=== PATIENT | female | born 1980 | race Caucasian/White ===

== ENCOUNTER 2017-07-09 16:53 | Emergency (ER) | payer MEDICAID ==
[2017-07-09 16:58] VITALS: O2SAT 96
--- NOTE | 2017-07-09 17:31 | EDPHY ---
H & P Stated Complaint: Cold-like symptoms for 3 days. Painful rectum. HPI/ROS: Chief complaint: Cold symptoms History of present illness: This is a 37-year-old female who presents to the emergency department for cold symptoms. Patient has been sick for the last week. She primarily reports runny nose, nasal congestion, sore throat and generalized fatigue. Symptoms have been persistent. She denies fever chills, she denies body aches, she denies cough, chest congestion or shortness of breath , she denies rash. In addition, patient reports she has developed some anal pain over the last 2 days. Only when she is having a bowel movement. She denies any precipitating factors. She denies any alleviating factors. She denies other associated signs or symptoms including no changes in her stool, no blood noted in the stool , no mucus in the stool. No recent trauma to the area. In addition, she is asking me to evaluate her right hip. She states she fell down a flight of stairs 2 years ago while living in [place]. Since then she has had hip pain. It is persistent. She treats with ibuprofen and gabapentin but this is not currently controlling the pain. She denies new trauma. No report of abnormal coolness or paresthesias in the leg. Review of systems: A 10 point review of systems was obtained and other than described above was negative - Personal History LMP (Females 10-55): Unknown Current Tetanus Diphtheria and Acellular Pertussis (TDAP): Yes - Medical/Surgical History Hx Asthma: Yes Hx Chronic Respiratory Disease: No Hx Diabetes: No Hx Cardiac Disease: No Hx Renal Disease: No Hx Cirrhosis: No Hx Alcoholism: No Hx HIV/AIDS: No Hx Splenectomy or Spleen Trauma: No Other PMH: asthma. arthritis. - Social History Smoking Status: Current some day smoker - Physical Exam Exam: General Appearance: Alert, non toxic. Eyes: Pupils equal and round no pallor or injection. ENT, Mouth: Mucous membranes moist. Respiratory: There are no retractions, lungs are clear to auscultation. Cardiovascular: Regular rate and rhythm. Gastrointestinal: Abdomen is soft and non tender, no masses, bowel sounds normal. Anal examination: Performed with female credit control officer, Nurse Keenan. Patient has a small skin tear at the 3 o'clock position. It does not affect the anal margin. No other findings noted. Neurological: Alert and oriented x4. Strength and sensation intact and symmetrical. No meningismus. Skin: Warm and dry, no rashes. Musculoskeletal: Neck is supple non tender. Extremities are symmetrical, full range of motion including with the right hip. Psychiatric: Patient is oriented X 3, there is no agitation. Constitutional: Initial Vital Signs Temperature (C) 36.5 C 07/09/17 16:54 Heart Rate 71 07/09/17 16:54 Respiratory Rate 16 07/09/17 16:54 Blood Pressure 109/44 L 07/09/17 16:54 O2 Sat (%) 96 07/09/17 16:54 O2 Delivery Mode Room Air Allergies/Adverse Reactions: Sulfa (Sulfonamide Antibiotics) Allergy (Verified 07/09/17 16:58) Home Medications: Medication Instructions Recorded NK [No Known Home Meds] 07/09/17 Medical Decision Making ED Course/Re-evaluation: Patient seen under the supervision of my secondary supervising physician Dr. Robin Murray. Patient primarily presents to the emergency department for URI like symptoms. She is nontoxic. Strep swab is negative. Likely a viral syndrome, symptomatic care is discussed. Patient also complaining of anal pain. Small skin tear that is not close to the anal margin. No evidence of hemorrhoids. No evidence abscess. Symptomatic care is discussed. The hip pain appears to be chronic. No acute precipitating factors. Strep cultures of the throat and anus are pending. Patient is to follow up with a primary care doctor and referral information is given. Return precautions are given. Patient voiced understanding and agreement with plan. Differential Diagnosis: Included but not limited to pharyngitis, strep pharyngitis, tonsillitis, sinusitis, influenza As well as for the anus a skin tear, rectal tear, rectal infection including strep as well as abscess formation, hemorrhoid As well as for the hip a contusion, sprain or strain arthritis, unlikely fracture dislocation - Data Points Laboratory Results: 07/09/17 07/09/17 Unknown 17:27 Group A Strep Screen NEGATIVE (NEGATIVE) Group A Strep DNA Pending Departure - Departure Disposition: Home, Routine, Self-Care Clinical Impression: Viral syndrome, Right hip pain, Anal pain Condition: Good Instructions: Viral Syndrome (ED), Hip Pain (ED) Additional Instructions: Follow-up with a primary care doctor for continued evaluation and care of your problems Use [id number] cold medications for treatment of your cold symptoms In addition you can use ibuprofen for your hip pain You can use medicated wipes such as preparation H wipes, use stool softeners such as Colace as well as Citrucel or Metamucil If symptoms worsen or new symptoms develop return to the emergency room for recheck Referrals: [facility],. [Clinic] - As per Instructions
[2017-07-09 18:49] VITALS: BP 112/76; PULSE 67; RESP 18; TEMP 98.1
== END 2017-07-09 18:50 | disposition home or self-care (01) ==
DX: B34.9 Viral infection, unspecified (principal); M25.551 Pain in right hip; K62.89 Other specified diseases of anus and rectum; J45.909 Unspecified asthma, uncomplicated; F17.200 Nicotine dependence, unspecified, uncomplicated

== ENCOUNTER 2017-07-27 14:44 | Emergency (ER) | payer MEDICAID ==
[2017-07-27 14:51] VITALS: TEMP 98.6
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
--- NOTE | 2017-07-27 16:16 | ASMTCMCOM ---
CM Note CM Note Notes: Patient presents to ER requesting prescription refills. See ER report for details. Patient states that she has been to [facility] in attempt to establish a provider/prescriber, but "they take too long". I have called [facility] and spoke to James. Patient did complete registration paperwork today but has missed 2 scheduled "comprehensive assessment" appointments (including today at 1130) which are required prior to patient meeting with a prescriber. Patient was rescheduled for her comprehensive assessment tomorrow at 0900. I have informed patient of the importance of following up with this appointment at [facility] tomorrow and encouraged her to arrive at 0830. I reiterated that she will need to establish a prescriber for her medications and that she has delayed this process by not showing up to her appointments. She verbalizes understanding and states that she will follow up with her appointment tomorrow morning Date Signed: 07/27/2017 04:16 PM Electronically Signed By:Oanh Castellanos RN
[2017-07-27 16:24] VITALS: BP 138/70; PULSE 76; RESP 16; O2SAT 95
== END 2017-07-27 16:10 | disposition home or self-care (01) ==
DX: Z76.0 Encounter for issue of repeat prescription (principal); F31.9 Bipolar disorder, unspecified; F20.9 Schizophrenia, unspecified; I10 Essential (primary) hypertension; J45.909 Unspecified asthma, uncomplicated; F17.200 Nicotine dependence, unspecified, uncomplicated

== ENCOUNTER 2018-01-28 22:49 | Emergency (ER) | payer MEDICAID ==
[2018-01-28] MEDS ORDERED: LIDOCAINE 4%/MENTHOL 1% PATCH TD ONE (22:53)
[2018-01-28 22:54] VITALS: BP 110/65
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
[2018-01-28] MEDS ORDERED: CYCLOBENZAPRINE 10 MG TAB PO ONE (23:18)
[2018-01-29] MEDS ORDERED: PATCH REMOVAL 1 EA PATCH TD SCH (21:00)
== END 2018-01-28 23:32 ==
DX: S39.012A Strain of muscle, fascia and tendon of lower back, initial encounter (principal); T74.91XA Unspecified adult maltreatment, confirmed, initial encounter; F17.200 Nicotine dependence, unspecified, uncomplicated; Y04.8XXA Assault by other bodily force, initial encounter; Y92.9 Unspecified place or not applicable; Y93.9 Activity, unspecified; Y99.9 Unspecified external cause status

== ENCOUNTER 2018-02-24 15:29 | Emergency (ER) | payer MEDICAID ==
[2018-02-24 15:36] VITALS: BP 102/52
--- NOTE | 2018-02-24 15:48 | EDPHY ---
H & P Time Seen by Provider: 02/24/18 15:41 HPI/ROS: Chief complaint. Medication refill HPI. 29 female here out of medications. She tells me she just out of [facility] for 1 week and does not want to go back there. She was seen August 01 for similar presentation complaints. Over the past week she has had anxiety and"flip outs" . She has no other complaints other than tired. She went to [facility] today and has appointments lips for visits for evaluation [facility] on March 01 and March 22. She tells me she takes starting doses of Klonopin. Geodon 20 mg daily, Neurontin 600 mg daily. She also has chronic pain and refill of tramadol which has given previously. She denies suicide or homicide ideation ROS 10 systems were reviewed and negative with the exception of the elements mentioned in the history of present illness Past Medical/Surgical History: Past medical history significant for schizophrenia, bipolar illness, chronic pain, asthma, rheumatoid arthritis, hep C, hypertension. Status post bilateral tubal ligation and cholecystectomy Social History: Single, daily smoker, no alcohol Smoking Status: Current some day smoker Physical Exam: General Appearance: Alert pleasant well-developed female no distress vital signs are stable Eyes: Pupils equal and round no pallor or injection. ENT, Mouth: Mucous membranes are moist. Respiratory: There are no retractions, lungs are clear to auscultation. Cardiovascular: Regular rate and rhythm. Gastrointestinal: Abdomen is soft and nontender, no masses, bowel sounds normal. Neurological: Awake and alert, sensory and motor exams grossly normal. Skin: Warm and dry, no rashes. Musculoskeletal: Neck is supple nontender. Extremities symmetrical, full range of motion. Psychiatric: Patient is oriented X 3, there is no agitation. Constitutional: Initial Vital Signs Temperature (C) 36.6 C 02/24/18 15:34 Heart Rate 63 02/24/18 15:34 Respiratory Rate 16 02/24/18 15:34 Blood Pressure 102/52 L 02/24/18 15:34 O2 Sat (%) 96 02/24/18 15:34 O2 Delivery Mode Room Air Allergies/Adverse Reactions: Sulfa (Sulfonamide Antibiotics) Allergy (Verified 02/24/18 15:33) Home Medications: Medication Instructions Recorded Gabapentin [Neurontin] 600 mg PO DAILY #30 tablet 02/24/18 Tramadol HCl 50 mg PO Q4-8PRN PRN #14 tablet 02/24/18 Ziprasidone HCl [Geodon 20MG (*)] 20 mg PO BID #30 cap 02/24/18 clonazePAM [Clonazepam] 0.25 mg PO DAILY #30 tab.rapdis 02/24/18 Medical Decision Making ED Course/Re-evaluation: Patient and I discussed treatment plan and writing prescription. We discussed further prescriptions need to be returned from [facility] or [facility]. She expresses understanding and agreement Differential Diagnosis: Patient with stab list diagnosis of schizophrenia and bipolar illness out of medication. Recently in [facility]. Departure - Departure Disposition: Home, Routine, Self-Care Clinical Impression: Medication refill Condition: Good Instructions: Medicine Refill (ED) Additional Instructions: Take her medication as prescribed. Return for thoughts of harming herself or others. [facility] on March 01 and March 22. Further medication refills from [facility] or [facility] Referrals: NONE *[facility],. [Primary Care Provider] - As per Instructions [facility] [Outside] - As per Instructions [facility] [Outside] - As per Instructions Prescriptions: clonazePAM [Clonazepam] 0.25 mg PO DAILY #30 tab.rapdis Gabapentin [Neurontin] 600 mg PO DAILY #30 tablet Tramadol HCl 50 mg PO Q4-8PRN PRN #14 tablet PRN Reason: Pain, Moderate Ziprasidone HCl [Geodon 20MG (*)] 20 mg PO BID #30 cap
== END 2018-02-24 16:06 | disposition home or self-care (01) ==
DX: Z76.0 Encounter for issue of repeat prescription (principal)

== ENCOUNTER 2018-04-13 18:34 | Emergency (ER) | payer MEDICAID ==
--- NOTE | 2018-04-13 19:14 | EDPHY ---
H & P Time Seen by Provider: 04/13/18 19:08 HPI/ROS: Chief complaint. Nausea vomiting diarrhea, fever HPI. 29-year-old female presents emergency department with 1 week of fever, diarrhea, vomiting. Urinary frequency. Hot and cold flashes. Myalgias. Coughing and some headache. Out of her psych meds. No chest pain or shortness of breath. Abdominal soreness from vomiting. ROS 10 systems were reviewed and negative with the exception of the elements mentioned in the history of present illness Past Medical/Surgical History: Asthma, arthritis, chronic pain, psychiatric issues, hep C Social History: Single, daily smoker, no alcohol Smoking Status: Current some day smoker Physical Exam: General Appearance: Alert well-developed female mild distress vital signs are stable Eyes: Pupils equal and round no pallor or injection. ENT, Mouth: Mucous membranes are moist. Respiratory: There are no retractions, lungs are clear to auscultation. Cardiovascular: Regular rate and rhythm. Gastrointestinal: Abdomen is soft, no masses, bowel sounds normal. Tenderness in abdominal wall from vomiting Neurological: Awake and alert, sensory and motor exams grossly normal. Skin: Warm and dry, no rashes. Musculoskeletal: Neck is supple nontender. Some low back soreness Extremities symmetrical, full range of motion. Psychiatric: Patient is oriented X 3, there is no agitation. Constitutional: Initial Vital Signs Temperature (C) 36.7 C 04/13/18 18:37 Heart Rate 61 04/13/18 18:37 Respiratory Rate 16 04/13/18 18:37 Blood Pressure 100/55 L 04/13/18 18:37 O2 Sat (%) 97 04/13/18 18:37 O2 Delivery Mode Room Air Allergies/Adverse Reactions: Sulfa (Sulfonamide Antibiotics) Allergy (Verified 02/24/18 15:33) Home Medications: Medication Instructions Recorded Gabapentin [Neurontin] 600 mg PO DAILY #30 tablet 02/24/18 Tramadol HCl 50 mg PO Q4-8PRN PRN #14 tablet 02/24/18 Ziprasidone HCl [Geodon 20MG (*)] 20 mg PO BID #30 cap 02/24/18 clonazePAM [Clonazepam] 0.25 mg PO DAILY #30 tab.rapdis 02/24/18 Cephalexin [Keflex (*)] 500 mg PO TID #21 cap 04/13/18 Clonidine 04/13/18 Gabapentin [Neurontin] 600 mg PO DAILY #7 tablet 04/13/18 [place] Carbonate 04/13/18 Tramadol HCl 50 mg PO Q6-8PRN PRN #14 tablet 04/13/18 Ziprasidone HCl [Geodon 20MG (*)] 20 mg PO BID #14 cap 04/13/18 clonazePAM [Clonazepam] 0.25 mg PO DAILY #7 tab.rapdis 04/13/18 Medical Decision Making - Diagnostics Imaging Results: Imaging Impressions Chest X-Ray 04/13/18 19:25 Impression: 1. No acute pulmonary disease. 2. Consider chest two views when the patient's medical condition permits. Chest x-ray interpreted by me as negative for pneumonia Procedures: IV normal saline. Phenergan for nausea Tramadol orally ED Course/Re-evaluation: Patient remained stable. Appears she has mild UTI. She is given her 1st dose of cephalexin in the emergency dip Re-evaluation 9:00 p.m. Patient is stable. Patient and I discussed imaging and lab results. We discussed treatment plan including criteria for return importance of follow-up further evaluation. She expresses understanding and agreement I have given the patient 1 weeks worth of refills of her psychiatric medication Differential Diagnosis: I considered pneumonia, urinary tract infection, viral syndrome - Data Points Laboratory Results: Laboratory Results 04/13/18 19:41 04/13/18 19:41 04/13/18 04/13/18 04/13/18 20:36 19:41 19:41 WBC 8.72 10^3/uL 10^3/uL (3.80-9.50) RBC 4.80 10^6/uL 10^6/uL (4.18-5.33) Hgb 13.7 g/dL g/dL (12.6-16.3) Hct 42.1 % % (38.0-47.0) MCV 87.7 fL fL (81.5-99.8) MCH 28.5 pg pg (27.9-34.1) MCHC 32.5 g/dL g/dL (32.4-36.7) RDW 13.1 % % (11.5-15.2) Plt Count 271 10^3/uL 10^3/uL (150-400) MPV 11.3 fL fL (8.7-11.7) Neut % (Auto) 59.4 % % (39.3-74.2) Lymph % (Auto) 27.5 % % (15.0-45.0) [place] % (Auto) 8.1 % % (4.5-13.0) Eos % (Auto) 4.0 % % (0.6-7.6) Baso % (Auto) 0.5 % % (0.3-1.7) Nucleat RBC Rel Count 0.0 % % (0.0-0.2) Absolute Neuts (auto) 5.18 10^3/uL 10^3/uL (1.70-6.50) Absolute Lymphs (auto) 2.40 10^3/uL 10^3/uL (1.00-3.00) Absolute Monos (auto) 0.71 10^3/uL 10^3/uL (0.30-0.80) Absolute Eos (auto) 0.35 10^3/uL 10^3/uL (0.03-0.40) Absolute Basos (auto) 0.04 10^3/uL 10^3/uL (0.02-0.10) Absolute Nucleated RBC 0.00 10^3/uL 10^3/uL (0-0.01) Immature Gran % 0.5 % % (0.0-1.1) Immature Gran # 0.04 10^3/uL 10^3/uL (0.00-0.10) Sodium 137 mEq/L mEq/L (135-145) Potassium 4.3 mEq/L mEq/L (3.3-5.0) Chloride 103 mEq/L mEq/L (97-110) Carbon Dioxide 26 mEq/l mEq/l (22-31) Anion Gap 8 mEq/L mEq/L (6-14) BUN 16 mg/dL mg/dL (7-23) Creatinine 0.9 mg/dL mg/dL (0.6-1.0) Estimated GFR > 60 Glucose 91 mg/dL mg/dL (70-100) Calcium 9.9 mg/dL mg/dL (8.5-10.4) Urine Color YELLOW Urine Appearance CLEAR Urine pH 6.0 (5.0-7.5) Ur Specific [place] 1.009 (1.002-1.030) Urine Protein NEGATIVE (NEGATIVE) Urine Ketones NEGATIVE (NEGATIVE) Urine Blood NEGATIVE (NEGATIVE) Urine Nitrate POSITIVE H (NEGATIVE) Urine Bilirubin NEGATIVE (NEGATIVE) Urine Urobilinogen NEGATIVE EU EU (0.2-1.0) Ur Leukocyte Esterase TRACE H (NEGATIVE) Urine RBC 1-3 /hpf /hpf (0-3) Urine WBC 5-10 /hpf H /hpf (0-3) Ur Epithelial Cells TRACE /lpf /lpf (NONE-1+) Urine Bacteria 4+ /hpf H /hpf (NONE SEEN) Urine Mucus TRACE /lpf /lpf (NONE-1+) Urine Sperm PRESENT /hpf H /hpf (NONE SEEN) Urine Glucose NEGATIVE (NEGATIVE) Medications Given: Discontinued Medications Sodium Chloride (Ns) 1,000 mls @ 0 mls/hr IV EDNOW ONE; Wide Open PRN Reason: Protocol Stop: 04/13/18 19:26 Last Admin: 04/13/18 19:40 Dose: 1,000 mls Promethazine HCl (Phenergan) 12.5 mg IVP EDNOW ONE Stop: 04/13/18 19:27 Last Admin: 04/13/18 19:41 Dose: 12.5 mg Tramadol HCl (Ultram) 50 mg PO EDNOW ONE Stop: 04/13/18 19:26 Last Admin: 04/13/18 19:50 Dose: 50 mg Departure - Departure Disposition: Home, Routine, Self-Care Clinical Impression: Urinary tract infection Qualifiers: Urinary tract infection type: site unspecified Hematuria presence: without hematuria Qualified Code(s): N39.0 - Urinary tract infection, site not specified Condition: Good Instructions: Urinary Tract Infection in Women (ED) Additional Instructions: Drink plenty of fluids and stay hydrated. Cephalexin as antibiotic for urinary tract infection. Use 1 pill 3 times daily until antibiotics are complete I have written you for 1 weeks worth of psychiatric medication. Please see [facility] in the next several days for refill see do not run out again Return for worsening symptoms Referrals: NONE *PRIMARY CARE P,. [Primary Care Provider] - As per Instructions [facility] [Outside] - As per Instructions Prescriptions: Cephalexin [Keflex (*)] 500 mg PO TID #21 cap clonazePAM [Clonazepam] 0.25 mg PO DAILY #7 tab.rapdis Gabapentin [Neurontin] 600 mg PO DAILY #7 tablet Tramadol HCl 50 mg PO Q6-8PRN PRN #14 tablet PRN Reason: Pain, Moderate Ziprasidone HCl [Geodon 20MG (*)] 20 mg PO BID #14 cap
[2018-04-13] MEDS ORDERED: traMADol 50 MG TAB PO ONE (19:25)
[2018-04-13] MEDS ORDERED: NS 1,000 ML IV ONE (19:25)
[2018-04-13] MEDS ORDERED: PROMETHAZINE HCL 25 MG/ML INJ IVP ONE (19:26)
[2018-04-13 20:05] LABS: PLATELET COUNT 271 10^3/uL (150-400)
[2018-04-13] MEDS ORDERED: CEPHALEXIN 500MG PREPACK#4 BTL TAKEHOME ONE (20:59)
[2018-04-13 21:17] VITALS: BP 103/59
== END 2018-04-13 21:20 | disposition home or self-care (01) ==
DX: N39.0 Urinary tract infection, site not specified (principal); E86.9 Volume depletion, unspecified
CPT/HCPCS: 96374; J2550

== ENCOUNTER 2018-06-11 17:56 | Emergency (ER) | payer MEDICAID ==
--- NOTE | 2018-06-11 19:20 | EDPHY ---
H & P Time Seen by Provider: 06/11/18 18:31 HPI/ROS: HPI Right shoulder injury. 38-year-old female by private vehicle with her friends. This patient reports that she was walking up some stairs about 1 week ago caring some boxes. She reports that she fell and landed awkwardly on her right shoulder. She reports that she has had continued pain to the superior lateral aspect of the right shoulder since this time. She reports that she is unable to take ibuprofen or other NSAIDs because she is on lithium. She reports that she has taken tramadol in the past for pain but does not have any of this medication currently. She denies any loss of sensation or weakness in her right hand. Her friend who is present in the room told me that she has also been complaining of lower back pain. She denies any bowel or bladder incontinence. She describes this pain is chronic in nature and more involving the right sacroiliac joint. She denies any loss of sensation or weakness in her extremities. She denies any radiation of the pain. ROS: Constitutional: No fever, no chills. No weakness. Respiratory: No cough. No shortness of breath. Cardiac: No chest pain, no palpitations. Gastrointestinal: No abdominal pain, no vomiting, no diarrhea. Genitourinary: No hematuria. No dysuria or increased frequency with urination. Musculoskeletal: As above. No neck pain. No other extremity pain. Skin: No rashes. No lacerations or abrasions. Neurological: No headache. No focal weakness or altered sensation. Past medical history: Asthma, arthritis, chronic pain, schizophrenia, bipolar, hepatitis-C. Social history: Here with her friends. No alcohol. Nonsmoker. Physical Exam: General Appearance: Alert, no distress. This patient is responding to questions appropriately and in full sentences. This patient appears well- hydrated and well-nourished. Head: Normocephalic atraumatic. Face: Facial bones are stable on palpation. Eyes: Pupils equal and round and reactive to light, no pallor or injection. No lid erythema or edema. Right upper extremity and shoulder exam. The axillary nerve distribution is intact. The right upper extremity is neurovascularly intact. There is no gross deformity on inspection of the right glenohumeral joint and shoulder in general in comparison to the left side. She does have some tenderness on palpation over the AC joint. No bony deformity or step-off noted over this area. The glenohumeral joint is intact and ranges freely in all planes of motion. Back exam: No midline cervical, thoracic, lumbar, sacral tenderness on palpation. No significant paraspinal tenderness on palpation. No CVA tenderness on palpation. She has a negative same side and cross-side straight leg raise test. She is neurologically intact in all myotomes in dermatomes of the bilateral lower extremities. Gastrointestinal: Abdomen is soft and nontender, no masses, bowel sounds normal. Neurological: Motor sensory function is intact. Cranial nerves are normal. Cerebellar function intact. Skin: Warm and dry, no rashes. No lacerations, abrasions or contusions. Extremities are symmetrical, full range of motion except noted. All joints in the bilateral upper and bilateral lower extremities range without pain or impingement except noted. No tenderness on palpation of the long bones in the bilateral upper and bilateral lower extremities except noted. Psychiatric: No agitation. No depression. Database: EKG: Imaging: Right shoulder x-ray series: Negative for fracture, subluxation, dislocation. Interpreted by me. Procedures: Emergency department course: Triage vital signs reviewed and are unremarkable. This patient's trauma physical exam does not demonstrate any significant findings. I suspect a mild grade 1 AC joint sprain on the right. She also may have a rotator cuff injury. Plan will be to prescribe her a limited course of tramadol. I will have her follow up with Orthopedics for re-evaluation of her right shoulder this coming week. At this time I do not want to put the right shoulder in a sling. I am concerned that she will just keep it immobilized for too long a period of time and it will worsen her condition. She is in agreement with this plan. Follow- up was thoroughly reviewed with her and her friends. Return to emergency department precautions discussed. All of her questions were answered. She was discharged from the emergency department in good condition with her friends. Differential Diagnosis: The differential diagnosis on this patient includes but is not limited to grade 1 AC joint sprain, possible rotator cuff injury. Fracture, subluxation, dislocation of the right glenohumeral joint, proximal humerus fracture, other significant traumatic injury unlikely. This represents a partial list of diagnoses considered. These considerations are based on history, physical exam , past history, reassessment and diagnostic testing. Smoking Status: Light smoker Constitutional: Initial Vital Signs Temperature (C) 36.7 C 06/11/18 18:15 Heart Rate 57 L 06/11/18 18:15 Respiratory Rate 16 06/11/18 18:15 Blood Pressure 100/44 L 06/11/18 18:15 O2 Sat (%) 96 06/11/18 18:15 O2 Delivery Mode Room Air Allergies/Adverse Reactions: Sulfa (Sulfonamide Antibiotics) Allergy (Intermediate, Verified 06/11/18 18:14) Dyspnea Home Medications: Medication Instructions Recorded Gabapentin [Neurontin] 600 mg PO DAILY #30 tablet 02/24/18 Tramadol HCl 50 mg PO Q4-8PRN PRN #14 tablet 02/24/18 Ziprasidone HCl [Geodon 20MG (*)] 20 mg PO BID #30 cap 02/24/18 clonazePAM [Clonazepam] 0.25 mg PO DAILY #30 tab.rapdis 02/24/18 Cephalexin [Keflex (*)] 500 mg PO TID #21 cap 04/13/18 Gabapentin [Neurontin] 600 mg PO DAILY #7 tablet 04/13/18 [place] Carbonate 04/13/18 Tramadol HCl 50 mg PO Q6-8PRN PRN #14 tablet 04/13/18 Ziprasidone HCl [Geodon 20MG (*)] 20 mg PO BID #14 cap 04/13/18 clonazePAM [Clonazepam] 0.25 mg PO DAILY #7 tab.rapdis 04/13/18 traMADol [Ultram 50 mg (*)] 50 mg PO Q4-6PRN PRN #10 tab 06/11/18 Departure - Departure Disposition: Home, Routine, Self-Care Clinical Impression: Sprain of right shoulder Condition: Good Instructions: Shoulder Sprain (ED) Additional Instructions: Read and follow provided instructions. Follow-up with Orthopedics, Dr. Hutchison, or 1 of his partners early this week for re-evaluation of your right shoulder. Call their office on Wednesday morning for appointment time. Take medication as prescribed. Do not drive while on this medication. Return to the emergency department for worsening pain, loss of sensation or weakness in your right arm, discoloration or other serious concerns. Referrals: Moody Hutchison MD [Medical Doctor] - As per Instructions Prescriptions: traMADol [Ultram 50 mg (*)] 50 mg PO Q4-6PRN PRN #10 tab PRN Reason: Pain, Moderate
[2018-06-11 19:40] VITALS: BP 98/56
== END 2018-06-11 19:39 | disposition home or self-care (01) ==
DX: S43.401A Unspecified sprain of right shoulder joint, initial encounter (principal); W19.XXXA Unspecified fall, initial encounter; Y92.9 Unspecified place or not applicable; Y93.9 Activity, unspecified; Y99.9 Unspecified external cause status

== ENCOUNTER 2018-08-17 12:36 | Emergency (ER) | payer MEDICAID ==
--- NOTE | 2018-08-17 13:43 | EDPHY ---
H & P Time Seen by Provider: 08/17/18 13:27 HPI/ROS: CHIEF COMPLAINT: Abdominal pain, "I threw out my meds" HISTORY OF PRESENT ILLNESS: The patient is a 38-year-old female with a history of her schizophrenia, bipolar disorder, chronic pain who presents emergency department with abdominal pain. Patient states she has had numerous episodes of nonbloody diarrhea x 2 mos. She also has had nausea and vomiting. The she thought that maybe her psych medications were causing her symptoms so she threw them all out roughly 1 week ago. Patient has no fevers or chills. REVIEW OF SYSTEMS: 10 systems were reveiwed and are negative with the exception of the elements mentioned in the history of present illness. Past Medical/Surgical History: Includes asthma, arthritis, chronic pain, schizophrenia, bipolar disorder, hepatitis-C Social history: Patient does not smoke Smoking Status: Light smoker Physical Exam: Vitals noted GENERAL: No acute distress, alert. HEENT: Eyes normal to inspection, normal pharynx, no signs of dehydration. NECK: Normal, supple. RESPIRATORY: Clear to auscultation bilaterally, no rales, rhonchi or wheezing. CVS: Regular rate and rhythm, no rubs, murmurs, or gallops. ABDOMEN: Soft, nontender, nondistended, no organomegaly. Benign on exam BACK: Normal to inspection, no CVA tenderness. SKIN: Normal color, no rash, warm, dry. No pallor. EXTREMITIES: No pedal edema, no calf tenderness, no Homans sign or cords, no joint swelling. NEURO/PSYCH: Alert and oriented, normal mood and affect, normal motor sensory exam. Constitutional: Initial Vital Signs Temperature (C) 36.5 C 08/17/18 12:46 Heart Rate 77 08/17/18 12:46 Respiratory Rate 16 08/17/18 12:46 Blood Pressure 103/53 L 08/17/18 12:46 O2 Sat (%) 94 08/17/18 12:46 O2 Delivery Mode Room Air Allergies/Adverse Reactions: Sulfa (Sulfonamide Antibiotics) Allergy (Intermediate, Verified 08/17/18 12:46) Dyspnea Home Medications: Medication Instructions Recorded Gabapentin [Neurontin] 600 mg PO DAILY #30 tablet 02/24/18 Tramadol HCl 50 mg PO Q4-8PRN PRN #14 tablet 10/11/18 Ziprasidone HCl [Geodon 20MG (*)] 20 mg PO BID #30 cap 02/24/18 clonazePAM [Clonazepam] 0.25 mg PO DAILY #30 tab.rapdis 02/24/18 Cephalexin [Keflex (*)] 500 mg PO TID #21 cap 04/13/18 Gabapentin [Neurontin] 600 mg PO DAILY #7 tablet 04/13/18 [place] Carbonate 04/13/18 Tramadol HCl 50 mg PO Q6-8PRN PRN #14 tablet 04/13/18 Ziprasidone HCl [Geodon 20MG (*)] 20 mg PO BID #14 cap 04/13/18 clonazePAM [Clonazepam] 0.25 mg PO DAILY #7 tab.rapdis 04/13/18 traMADol [Ultram 50 mg (*)] 50 mg PO Q4-6PRN PRN #10 tab 06/11/18 Ondansetron Odt [Zofran Odt 4 mg 4 mg PO Q4PRN PRN #7 tab 08/17/18 (*)] Medical Decision Making ED Course/Re-evaluation: In the emergency department I discussed possible etiologies with the patient. I answered all her questions. IV was placed. Patient was given normal saline 5 mL IV for hydration. Laboratory studies were obtained. The patient's CBC and chemistry unremarkable. is negative. LFTs are normal. Lipase is normal. I discussed the results with the patient. I answered all her questions. Patient was given Zofran upon discharge. She is given follow-up with primary care physician. She will return with worsening symptoms. She was given warnings prior to leaving. The patient will follow up with primary care physician and mental health to obtain her baseline medications. Differential Diagnosis: My differential includes but is not limited to hepatitis-C, cirrhosis, cholecystitis, pancreatitis, electrolyte abnormality, sugar abnormality, withdrawal, dehydration - Data Points Laboratory Results: Laboratory Results 08/17/18 13:45 08/17/18 13:45 08/17/18 08/17/18 08/17/18 13:45 13:45 13:45 WBC 6.74 10^3/uL 10^3/uL (3.80-9.50) RBC 4.82 10^6/uL 10^6/uL (4.18-5.33) Hgb 14.0 g/dL g/dL (12.6-16.3) Hct 42.5 % % (38.0-47.0) MCV 88.2 fL fL (81.5-99.8) MCH 29.0 pg pg (27.9-34.1) MCHC 32.9 g/dL g/dL (32.4-36.7) RDW 13.8 % % (11.5-15.2) Plt Count 257 10^3/uL 10^3/uL (150-400) MPV 10.5 fL fL (8.7-11.7) Neut % (Auto) 57.9 % % (39.3-74.2) Lymph % (Auto) 28.9 % % (15.0-45.0) [place] % (Auto) 8.8 % % (4.5-13.0) Eos % (Auto) 3.7 % % (0.6-7.6) Baso % (Auto) 0.4 % % (0.3-1.7) Nucleat RBC Rel Count 0.0 % % (0.0-0.2) Absolute Neuts (auto) 3.90 10^3/uL 10^3/uL (1.70-6.50) Absolute Lymphs (auto) 1.95 10^3/uL 10^3/uL (1.00-3.00) Absolute Monos (auto) 0.59 10^3/uL 10^3/uL (0.30-0.80) Absolute Eos (auto) 0.25 10^3/uL 10^3/uL (0.03-0.40) Absolute Basos (auto) 0.03 10^3/uL 10^3/uL (0.02-0.10) Absolute Nucleated RBC 0.00 10^3/uL 10^3/uL (0-0.01) Immature Gran % 0.3 % % (0.0-1.1) Immature Gran # 0.02 10^3/uL 10^3/uL (0.00-0.10) Sodium 138 mEq/L mEq/L (135-145) Potassium 4.3 mEq/L mEq/L (3.5-5.2) Chloride 105 mEq/L mEq/L (97-110) Carbon Dioxide 22 mEq/l mEq/l (22-31) Anion Gap 11 mEq/L mEq/L (6-14) BUN 13 mg/dL mg/dL (7-23) Creatinine 0.8 mg/dL mg/dL (0.6-1.0) Estimated GFR > 60 Glucose 95 mg/dL mg/dL (70-100) Calcium 9.7 mg/dL mg/dL (8.5-10.4) Total Bilirubin 0.5 mg/dL mg/dL (0.1-1.4) Conjugated Bilirubin 0.3 mg/dL mg/dL (0.0-0.5) Unconjugated Bilirubin 0.2 mg/dL mg/dL (0.0-1.1) AST 23 IU/L IU/L (14-46) ALT 30 IU/L IU/L (9-52) Alkaline Phosphatase 61 IU/L IU/L (38-126) Total Protein 7.3 g/dL g/dL (6.3-8.2) Albumin 4.3 g/dL g/dL (3.5-5.0) Lipase 41 IU/L IU/L (23-300) Beta HCG, Qual NEGATIVE Medications Given: Discontinued Medications Sodium Chloride (Ns) 500 mls @ 0 mls/hr IV EDNOW ONE; Wide Open PRN Reason: Protocol Stop: 08/17/18 13:46 Last Admin: 08/17/18 14:01 Dose: 500 mls Famotidine/Sodium Chloride (Pepcid 20 Mg (Premix)) 50 mls @ 200 mls/hr IV EDNOW ONE Stop: 08/17/18 13:59 Last Admin: 08/17/18 14:00 Dose: 50 mls Departure - Departure Disposition: Home, Routine, Self-Care Clinical Impression: Abdominal pain Qualifiers: Abdominal location: generalized Qualified Code(s): R10.84 - Generalized abdominal pain Condition: Fair Instructions: Acute Nausea and Vomiting (ED), Acute Abdominal Pain (ED) Additional Instructions: Return with increasing pain, persistent vomiting or any other concerns. Use [id number] Imodium to help with diarrhea. Follow the instructions on the box. Referrals: Larissa Gill MD [Medical Doctor] - 5-7 days, call for appt. Franklyn Marie MD [Medical Doctor] - 5-7 days, if not improved Prescriptions: Ondansetron Odt [Zofran Odt 4 mg (*)] 4 mg PO Q4PRN PRN #7 tab PRN Reason: For Nausea & Vomiting
[2018-08-17] MEDS ORDERED: FAMOTIDINE 20 MG/NACL 50 ML IV ONE (13:45)
[2018-08-17] MEDS ORDERED: NS 500 ML IV ONE (13:45)
[2018-08-17 13:53] LABS: PLATELET COUNT 257 10^3/uL (150-400)
[2018-08-17 14:33] VITALS: BP 120/79
== END 2018-08-17 14:33 | disposition home or self-care (01) ==
DX: R10.84 Generalized abdominal pain (principal); E86.9 Volume depletion, unspecified; F31.9 Bipolar disorder, unspecified; F20.9 Schizophrenia, unspecified
CPT/HCPCS: 96374

== ENCOUNTER 2018-09-07 10:24 | Inpatient (IN) | payer MEDICAID ==
--- NOTE | 2018-09-07 10:52 | EDPHY ---
General - History Smoking Status: Light smoker Time Seen by Provider: 09/07/18 10:45 Narrative: CLINICAL IMPRESSION: Medication noncompliance, depression, suicidal ideations ASSESSMENT/PLAN: 38-year-old female presents to the emergency department with noncompliance to psychiatric medications for over a week, chronic abdominal pain, chronic intermittent bloody diarrhea, and feeling suicidal with plans to jump off a bridge. Patient has been noncompliant with outpatient follow-up and re- initiation of medications. She missed a primary care doctor appointment today. She is supposed to be taking lithium, Geodon, and other medications which she has not taken for quite some time. She has conflicting initially reporting to me that she lives with , 3 teenage daughters and her mother but then telling [facility] that she is homeless. U tox positive for cocaine in a patient that tells me she does not abuse illicit drugs. Concerned that this patient would not be compliant with outpatient follow-up in does express suicidal ideation with plan. She was medically cleared, abdomen is generally uncomfortable but without peritoneal signs or suggestion of acute surgical process. Labs reassuring with no significant electrolyte imbalance, anemia, leukocytosis, transaminitis, or metabolic disturbance. Will plan to place patient on M1 hold and admit to inpatient psych. M1 completed by [facility], signed by Dr. Murray. Patient informed of this and is awaiting placement at time of sign-out at 5:[address] Judd. DIFFERENTIAL DX: Differential includes but not limited to, acute/chronic psychosis, severe depression, suicidal or homicidal ideations, grave disability, failure to thrive , medication noncompliance, medication side effect, alcohol intoxication and illicit drug use, metabolic disturbance, electrolyte imbalance. Abdominal pain includes but not limited to urinary tract infection, pyelonephritis, infection, ectopic , salpingitis, TOA, ovarian torsion, ovarian cyst, endometriosis, uterine fibroids, acute appendicitis, acute diverticulitis, small -bowel obstruction, constipation ED PROCEDURES: See lab and/or imaging results below ED COURSE: Seen and assessed by myself at 11:00 a.m.. Alert, cooperative, endorses suicidal ideation x3 weeks with plan to jump off a bridge. Multiple prior psychiatric admissions. Off her meds for at least a month. Chronic abdominal pain not evaluated by PCP or specialist. Came to the ED voluntarily by bus. Will established IV, labs, stool and urine studies, med clearance and will need evaluation. Patient is cooperative and here voluntarily at this time. If escalate or threatens to leave, will place on [facility]. 1:30 p.m.: Discussed with [facility] provider. Patient positive for cocaine. Not up front about her history. Admits to feeling suicidal, unclear if this is due to underlying drug abuse but I do not feel that this patient will be compliant with outpatient follow-up in is telling me that she would like to jump off a bridge. Plan to look for inpatient placement. Currently not on [facility] or M1. M1 completed by [facility], signed by Dr. Murray. Placement pending. Signed out to Dr. Judd at 1700. CHIEF COMPLAINT: Abdominal pain, suicidal ideations x3 weeks, itchiness all over HPI: 38-year-old female with past medical history of asthma, arthritis, chronic pain , schizophrenia and bipolar disease. Patient reports she has been off of her psychiatric medications for at least 1 week. She has been struggling with abdominal pain, cramping and intermittent bloody diarrhea for 3 months. She thought her psychiatric medications were causing this and therefore stops them. Then she realized they were not causing it, reportedly restarted them but states for the last week she has not taken them. It is unclear why she has not taken them but she tells me that she "ran out". She brings with her several bottles of lithium. She states she has an appointment with her [facility] provider on the of next month. She reportedly was going to a new patient appointment at [facility] today, got in an argument with her in the car and "jumped out of the car at low speed". She then got on a bus and came to the emergency department. Patient reports that she has been suicidal for the last 3 weeks with plan to jump off a bridge. She reportedly has had numerous psychiatric admissions in the past and has attempted suicide in the past. She is not feeling homicidal. She believes her stress is stemmed from "3 un-grateful teenage kids, who does not help me and a mom who is trash". She has not ingested any illicit drugs aside from marijuana. She denies regular alcohol abuse. She reports a history of prior cholecystectomy and treated hepatitis-C. No travel outside the [place] Or recent antibiotics. She reports food "go straight through her and she cannot eat". She reports bloody stools and bleeding from her anus. She has not seen a primary care or GI provider for this. No reported family history of colon cancer, ulcerative colitis or Crohn's disease. No unintentional or unexplained weight loss, night sweats, fevers or chills. She does report that she is very itchy. She has not taken anything for her symptoms. PAST MEDICAL HISTORY: Chronic pain, arthritis, asthma, schizophrenia, bipolar See nurse/triage notes for additional history if applicable Pertinent Past Surgical History: Cholecystectomy, tubal ligation Family History: No reported first-degree relative with Crohn's, ulcerative colitis or colon cancer Social History: Daily smoker, lives with , 3 children and her mother. REVIEW OF SYSTEMS: All other systems negative Constitutional: No fever, no chills, positive for appetite change. Cardiovascular: No chest pain, no palpitations. Respiratory: No cough, no shortness of breath. Gastrointestinal: Positive for 3 months of abdominal pain, no vomiting, positive for diarrhea with intermittent blood. Genitourinary: No hematuria, dysuria, flank pain, pelvic pain Musculoskeletal: Positive for chronic back pain, joint swelling, joint pain, myalgias. Skin: No rashes, color change. Positive for itching Neurological: No headache, dizziness, weakness. PHYSICAL EXAM: General Appearance: Alert, oriented, appropriate, cooperative, anxious appearing, well hydrated, non-toxic appearing, VSS, no hypoxia. Respiratory: There are no retractions, lungs are clear to auscultation. Cardiac: Regular rate and rhythm, no murmurs or gallops. Gastrointestinal: Abdomen is soft, generalized tenderness throughout, bowel sounds normal, no masses/hernia, no rigidity, guarding or focal peritoneal findings. Patient refused rectal exam Neurological: [ Alert and oriented x 3 Skin: Warm, dry, no rashes, no nodules on palpation. No obvious jaundice or scleral icterus. No urticaria or rash Musculoskeletal: Extremities are symmetrical, full range of motion, chronic paravertebral low back pain unchanged from baseline according to patient. deformity, swelling, or erythema. Psychiatric: Patient is oriented X 3, there is no agitation. Admits to feeling suicidal with thoughts of jumping off a bridge. Denies homicidal ideations, anxious, tearful MEDICAL DECISION MAKING: Patient was seen independently. Secondary supervising physician at time of evaluation was Dr. Murray . Diagnosis: Severe depression, suicidal ideations, medication noncompliance, chronic abdominal pain and diarrhea. New, requires workup Summary: See Assessment and Plan for summary of ED visit Clinical lab tests: ordered / reviewed. Decision to obtain medical records or history from someone other than the patient: Reviewed last ED notes Review / Summarize previous medical records: Reviewed last ED notes Discussed patient with another provider: [facility] provider, Dr. Murray, Dr. Judd Patient Progress: Stable at time of sign-out. (Marcus Tomlinson) Medical Decision Making: PHYSICIAN DOCUMENTATION: The patient was evaluated and managed by the Physician Grinder Set Up Operator External and myself. I have reviewed the chart and agree with the findings and plan of care as documented. In addition, I examined the patient myself at 1455. History confirmed as suicidal ideation. Physical findings as follows: Alert cooperative. Placed on a mental health hold by myself in conjunction with [facility] burn crew member. Signed out to Binta with placement pending. I am the secondary supervising physician. (Robin Murray) Discussion: Accepted to [facility]. EMTALA completed. (Vy Judd) - Objective Vital Signs: Initial Vital Signs Temperature (C) 36.8 C 09/07/18 10:33 Heart Rate 71 09/07/18 10:33 Respiratory Rate 18 09/07/18 10:33 Blood Pressure 121/83 H 09/07/18 10:33 O2 Sat (%) 96 09/07/18 10:33 O2 Delivery Mode Room Air Allergies/Adverse Reactions: Sulfa (Sulfonamide Antibiotics) Allergy (Intermediate, Verified 09/07/18 10:35) Dyspnea Home Medications: Medication Instructions Recorded DULoxetine [Cymbalta 60 MG (*)] 60 mg PO BID 09/07/18 [place] Carbonate [[place] 300 mg PO BID 09/07/18 Carbonate Cap 300 mg (*)] Ondansetron Odt [Zofran Odt 4 mg 4 mg PO Q4 PRN 09/07/18 (*)] Prazosin HCl [Minipress 1mg (*)] 1 mg PO HS 09/07/18 Ziprasidone HCl [Geodon 20MG (*)] 0 mg PO BID 09/07/18 clonazePAM [Clonazepam] 0.125 mg PO Q6H PRN 09/07/18 Laboratory Results: Laboratory Results 09/07/18 11:25 09/07/18 11:25 Medications Given: Acetaminophen (Tylenol) 650 mg PO Q4HRS PRN PRN Reason: Pain, Mild Stop: 03/06/19 19:20 Last Admin: 09/08/18 11:45 Dose: 650 mg Al Hydroxide/Mg Hydroxide (Maalox Susp) 30 ml PO Q6HRS PRN PRN Reason: Dyspepsia Stop: 03/06/19 19:20 Last Admin: 09/08/18 11:45 Dose: 30 ml Lorazepam (Ativan) 0.5 mg PO Q6HRS PRN PRN Reason: Anxiety, Able to Take PO Stop: 03/06/19 19:20 Last Admin: 09/08/18 09:26 Dose: 0.5 mg Discontinued Medications Fentanyl (Sublimaze) 50 mcg IVP EDNOW ONE Stop: 09/07/18 11:09 Last Admin: 09/07/18 11:30 Dose: 50 mcg Fentanyl (Sublimaze) 50 mcg IVP EDNOW ONE Stop: 09/07/18 12:36 Last Admin: 09/07/18 12:45 Dose: 50 mcg Sodium Chloride (Ns) 1,000 mls @ 0 mls/hr IV EDNOW ONE; Wide Open PRN Reason: Protocol Stop: 09/07/18 11:09 Last Admin: 09/07/18 11:30 Dose: 1,000 mls Lorazepam (Ativan) 0.5 - 1 mg PO Q6HRS PRN PRN Reason: Anxiety, Able to Take PO Stop: 03/06/19 19:20 Last Admin: 09/08/18 02:48 Dose: 1 mg Ondansetron HCl (Zofran) 4 mg IVP EDNOW ONE Stop: 09/07/18 11:09 Last Admin: 09/07/18 11:30 Dose: 4 mg Promethazine HCl (Phenergan) 12.5 mg IVP ONCE ONE Stop: 09/07/18 12:36 Last Admin: 09/07/18 12:45 Dose: 12.5 mg Ziprasidone (Geodon) 40 mg PO BIDMEAL TIFFANIE Stop: 03/07/19 07:59 Last Admin: 09/08/18 08:47 Dose: 40 mg Departure - Departure Disposition: [facility] IP Clinical Impression: Suicidal ideation Condition: Good
[2018-09-07] MEDS ORDERED: fentaNYL 100 MCG/2 ML INJ IVP ONE ×2 (11:08→12:35)
[2018-09-07] MEDS ORDERED: ONDANSETRON 4 MG/2 ML VIAL IVP ONE (11:08)
[2018-09-07] MEDS ORDERED: NS 1,000 ML IV ONE (11:08)
[2018-09-07 11:47] LABS: PLATELET COUNT 252 10^3/uL (150-400)
[2018-09-07] MEDS ORDERED: PROMETHAZINE HCL 25 MG/ML INJ IVP ONE (12:35)
--- NOTE | 2018-09-07 16:01 | ASMTTCLDSP ---
[facility] Discharge Disposition Disposition: Answers: Admit Disposition Notes: Notes: In consultation with [facility] ED physician, Robin Murray MD, LUCERO Barajas and on-call MONITOR TECHNICIAN, Wilmar Rice APN, all concurred that pt appears to meet 27-65 criteria requiring psychiatric hospitalization as pt appears to be at risk of harm to self/gravely disabled due to a mental illness condition. Pt was read the Patient Rights and Responsibilities Statement on 09/07/18, original placed on chart, and was given photocopy of Rights. Pt (signedthe Patient Rights. Pt was given the 3[facility] prohibited belongings list while in the ED. Discharge Concerns/Recommendations: Notes: Admit to behavioral health at [facility] Was patient given the Answers: Yes Inpatient Behavioral Health Prohibited Belongings List while in the ED? For inpatient Wilmar Rice APN admission, the following psychiatrist agreed to accept patient for admission to Behavioral Health ([facility]): Type of Hold: Answers: M1/72-hour Hold Hold initiated by: Answers: ED Physician Date Signed: 09/07/2018 04:00 PM Electronically Signed By:Nicole Elliott
--- NOTE | 2018-09-07 16:16 | PDCONSULT ---
Car Head Liner Installer Note: INTERNAL MEDICINE CONSULT NOTE DATE OF CONSULTATION: 09/07/2018 REASON FOR CONSULTATION: medical clearance for inpatient behavioral health stay HISTORY OF PRESENT ILLNESS: 38yo F history of psychiatric disorder ( schizophrenia, bipolar disorder listed in chart) presents with suicidal ideation. She has a plan to jump off a bridge. Came to the ED voluntarily via bus. She had run out of all of her medications (geodon, lithium) over a week ago. She was placed on an M1 hold in the ED. We have been consulted for medical clearance. She reports 3 weeks of intermittent subjective fevers as well as cramping abdominal pain and 5-6 loose, non-bloody stools per day (she did report blood in her stool to the ED provider but denies to me). No recent antibiotics, travel, or exotic food exposures. No significant nausea, vomiting, urinary symptoms, shortness of breath, headaches, cough, or rashes. Per chart review, she has chronic abdominal pain complaints. PAST MEDICAL HISTORY: Reportedly has schizophrenia, bipolar disorder, chronic abdominal pain, mild intermittent asthma PAST SURGICAL HISTORY: Tubal ligation, cholecystectomy MEDICATIONS: Please refer to EMR. Has not taken any medications in >1 week. ALLERGIES: Sulfa SOCIAL HISTORY: Lives with and mother locally. Reportedly has 3 daughters. Occasional intranasal cocaine use. Smokes 1/4 pack cigarettes/day. Denies etoh or IVDU. FAMILY HISTORY: non-contributory REVIEW OF SYSTEMS: 10 point review was negative except per HPI. VITALS: Reviewed. Afebrile, normal HR and BP. PHYSICAL EXAM: No acute distress, comfortable. Appears stated age. Anicteric sclera, eomi, perrl. No thyromegaly. Clear oropharynx. RRR, no murmurs. Lungs clear bilaterally. Abdomen soft and nontender. No rashes. No leg edema or JVD. CN 2-12 intact, moving all extremities. Appropriate. LABORATORY STUDIES: Normal CBC, BMP, LFTs, lipase, urine beta HCG. Utox + cocaine and MJ. Negative salicylate, APAP, and lithium levels. ASSESSMENT/PLAN: 1. Psychiatric issues, suicidal ideation: Management per psychiatry team. 2. Abdominal pain, loose stools: Vitals, exam, and labs completely unremarkable. She is not dehydrated. Per chart review, this seems to be a chronic issue. I would monitor this. If significant diarrhea (>6 episodes/day) or blood in stool, would recommend sending GI PCR but do not feel that this is necessary at present. 3. Polysubstance abuse: Utox + cocaine and marijuana. 4. Chronic pain: She is on tramadol. Would recommend avoiding narcotics as much as possible. Use tylenol, ibuprofen PRN. 5. Mild intermittent asthma: Chart diagnosis. Not wheezing on exam. Not on inhalers at home. I see no medical contraindications for Ms Alexis's admission to the inpatient behavioral health unit. Thank you for this consult. Please do not hesitate to contact the internal medicine/hospitalist team if there should be further need for medical evaluation.
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
[2018-09-07] MEDS ORDERED: PROMETHAZINE HCL 25 MG/ML INJ ONE (18:11)
[2018-09-07] MEDS ORDERED: MAGNESIUM HYDROXIDE 30 ML UDCUP PO PRN (19:21)
[2018-09-07] MEDS ORDERED: OLANZapine DISINTEGR 10 MG TAB PO PRN (19:21)
[2018-09-07] MEDS ORDERED: NICOTINE POLACRILEX 2 MG GUM B PRN (19:21)
[2018-09-07] MEDS ORDERED: LORazepam 0.5 MG TAB PO PRN (19:21)
[2018-09-08] MEDS: ACETAMINOPHEN 325 MG TAB PO PRN ×3 (02:48→20:26)
[2018-09-08] MEDS: MAG HYDROX/AL HYDROX/SIMETH 30 ML UDCUP PO PRN ×3 (02:59→20:27)
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
[2018-09-08] MEDS ORDERED: ZIPRASIDONE HCL 40 MG CAP PO SCH ×2 (08:00→10:46)
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
[2018-09-08] MEDS: LORazepam 0.5 MG TAB PO PRN ×3 (09:26→21:37)
--- NOTE | 2018-09-08 11:40 | PDMN ---
Medical Necessity Medical necessity: Pt meets IP criteria per [employer] & MCG B-004-IP; est los >2 mn for eval/tx of bipolar disorder; pt on M1 hold due to being a danger to self; admit for further monitoring, safety, crisis stabilization & med eval; per H&P & order 09/07/18
[2018-09-08] MEDS: ZIPRASIDONE HCL 20 MG CAP PO SCH (17:15)
[2018-09-09 06:42] VITALS: BP 109/60
[2018-09-09] MEDS: ZIPRASIDONE HCL 20 MG CAP PO SCH (09:08)
[2018-09-09] MEDS: ACETAMINOPHEN 325 MG TAB PO PRN (10:48)
--- NOTE | 2018-09-09 12:33 | BDS ---
[f rep st] BEHAVIORAL HEALTH DISCHARGE SUMMARY REASON FOR ADMISSION: From the ED note dated 09/07/2018, the patient presented to the emergency department with history of nonadherence to psychiatric medications. ED note reports that patient does express suicidal ideation with plan. The patient reported feeling suicidal for the last 3 weeks with plan to jump off a bridge. The patient has had numerous psychiatric admissions in the past and has attempted suicide in the past. The patient was admitted involuntarily and on an M1 hold due to being a danger to herself. The patient was admitted for safety, crisis stabilization, and medication management. ADMITTING DIAGNOSES: 1. Bipolar disorder with severe depression. 2. Cannabis use disorder, severe. ADMISSION PHYSICAL EXAM: Patient was seen on 09/07/2018, for history and physical consultation for medical clearance for inpatient psychiatric hospitalization and treatment. The patient was medically cleared for inpatient psychiatric hospitalization and treatment. MAJOR PROCEDURES OR TESTS: None. HOSPITAL COURSE: The most prominent symptoms and behaviors while the patient was here were reports of severe anxiety and depression. Treatment modalities utilized were milieu and group therapy. Geodon was restarted at 20 mg p.o. twice daily with meal to target mood symptoms, was tolerated with no report of side effects. Patient has improved considerably with no signs of psychiatric symptoms and no psychiatric symptoms expressed. Patient reports she has improved since admission, states to be in stable condition, feels safe to discharge, and she contracts for safety. Patients response to treatment was good. There were no adverse or unexpected results of treatment. The patient was safe throughout stay, active in treatment, engaged in groups, and was appropriate with staff. Patient met with treatment team prior to discharge to assess readiness to discharge and review discharge plan. The treatment team consensus is the patient in stable condition, has a safe discharge plan, and is ready to discharge today. CONDITION AT DISCHARGE: Patient is in stable condition and is no longer a danger to self or others, and is not gravely disabled due to mental illness. Patient is no longer in need of inpatient level of care, and can be safely and effectively treated within the community. The patients level of risk at time of discharge is low. MSE: The patient is casually dressed and with good hygiene , and looks stated age. Patient is sitting, posture is upright, and position is relaxed. Patient appears awake, alert, and responds appropriately and reasonably during interview. Patient is engaged, relates well to interviewer, and emotional facial expression is appropriate to situation and changes appropriately with topic. Patient is cooperative, makes comfortable eye contact , and movements are voluntary, deliberate, coordinated, and smooth and even with no inappropriate movements. Patient makes laryngeal sounds effortlessly and shares conversation appropriately; pace of conversation is appropriate, and stream of talking is fluent; articulation is clear and understandable; word choice is effortless and appropriate for education level; completes sentences, occasionally pausing to think; rate and volume are appropriate for interview and setting. Patient reports mood as euthymic. Patients affect is stable with full variable range, congruent with mood, and appropriate to speech and circumstances. Patient has linear and logical thinking, with no loose associations, tangential thought, thought blocking, concrete thinking, or any other signs of formal thought disorder. Patient denies suicidal and homicidal ideation, and denies hallucinations and delusions. Patient appears to be a reliable historian with sound judgement and good insight into current condition. Patient has no apparent dysfunction in recent or remote memory noted , and no evidence of gross cognitive dysfunction noted at any point during the interview. DISCHARGE DIAGNOSES: 1. Bipolar disorder with severe depression. 2. Cannabis use disorder, severe. CURRENT MEDICATIONS: After reviewing options, risks and benefits with the patient, the patient agrees to continue Geodon 20 mg p.o. twice daily. The patient requests prescription for Geodon at time of discharge. A prescription for 30 days is provided. The prescription is reviewed with the patient at time of discharge to ensure accuracy and patient understanding. DISPOSITION: Patient left hospital independently and voluntarily and plans to live with her mother in [place], [place]. FOLLOWUP: media coordinator reports the appropriate outpatient follow-up services have been established and outpatient appointments have been scheduled. The patient received written instructions with times and dates of outpatient follow-up appointments. The following follow-up recommendations were provided to the patient at discharge: Continue psychotropic medications as prescribed and attend appointments as scheduled. Report any side effects to a psychiatric outpatient provider, a primary care provider, or other health healthcare manager. Address any questions or problems concerning the psychotropic medications with a psychiatric outpatient provider, a primary care provider, or other health healthcare manager. Contact [facility] or [facility], or go to the nearest emergency room, if you are ever a danger to yourself/others, or unable to care for yourself. As soon as possible, establish a routine medication management treatment with a psychiatric provider, establish routine therapy appointments, and follow-up with a primary care provider. LEGAL COURSE: The patient was admitted on an M1 hold for involuntary inpatient psychiatric hospitalization and treatment. The patient discharged today independently and voluntarily. ATTITUDE AT TIME OF DISCHARGE: The patients attitude was positive at time of discharge, and patient reports looking forward to discharging today. The patient reports she feels safe to discharge, is no longer a danger to herself or others, is in stable condition, and contracts for safety. Patient states she will continue medications as prescribed, and establish medication management treatment with an outpatient provider after discharge. Patient reports she understands the information that has been provided to her, and she understands, accepts, and agrees to psychotropic medications. Patient describes internal protective factors as the coping skills she has learned while hospitalized here, and she plans to continue to practice these coping skills after discharge. LABS AND STUDIES: There were no pending labs or studies at time of discharge ADVANCE DIRECTIVES: There were no advance directives on file, and patient was full code during this hospitalization. The following psychotropic medication treatment informed consent and recommendations were provided to the patient at time of discharge. Patient reports she understands, accepts, and agrees to the information that has been provided. PSYCHOTROPIC MEDICATION TREATMENT INFORMED CONSENT and RECOMMENDATIONS: Review nature of condition, diagnosis, and prognosis. Review nature and purpose of psychotropic medication treatment. Review type of psychotropic medications being prescribed. Review risk and benefits of psychotropic medication treatment. Review probable length of time will need to take medications. Review risk and benefits of not undergoing psychotropic medication treatment. Review alternative treatments to psychotropic medications. Review psychotropic medications contraindications, side effects, and importance of reporting any side effects to a psychiatric provider, primary care provider, or other health healthcare manager. Review importance of her asking a psychiatric provider or primary care provider any questions or problems concerning the psychotropic medications. Review importance of reporting to a psychiatric provider, primary care provider, or other health healthcare manager if she plans to or becomes . Review safety plan and the importance to contact [facility] or [facility] , or go to the nearest emergency room, if ever a danger to yourself/others, or unable to care for yourself. Recommend upon discharge to establish routine medication management treatment with a psychiatric provider, establish routine therapy appointments, and follow-up with a primary care provider. Verify patient understands, accepts, and agrees to the information that has been provided. /[id number]/MODL MTDD
== END 2018-09-09 11:30 | disposition home or self-care (01) | DRG 753 ==
LOC: BBEH 18:28
PROVIDERS: ADMIT Registered Nurse; ATTEND Registered Nurse
DX: F31.5 Bipolar disorder, current episode depressed, severe, with psychotic features (principal); R45.851 Suicidal ideations; F12.90 Cannabis use, unspecified, uncomplicated; F17.210 Nicotine dependence, cigarettes, uncomplicated; Z91.14 Patient's other noncompliance with medication regimen; G89.29 Other chronic pain
CPT/HCPCS: 80305; 96374; G0480; J2405; J2550; J3010